=== PATIENT | female | born 1990 | race African-American/Black ===

== ENCOUNTER 2018-02-08 16:18 | Emergency (ER) | payer SELFPAY ==
[~2018-02-08] VITALS: Ht 167.6 cm; Wt 108.9 kg
[2018-02-08] MEDS ORDERED: cefTRIAXone SOD 1,000 MG VL IM ONE (17:45)
[2018-02-08] MEDS ORDERED: methylPREDNISolone SOD SUCC 125 MG/2 ML VL IM ONE (17:45)
[2018-02-08 17:58] VITALS: BP 119/77
== END 2018-02-08 18:26 | disposition home or self-care (01) ==
LOC: ER 16:23
DX: J03.90 Acute tonsillitis, unspecified (principal)
CPT/HCPCS: 96372; 99284; J0696; J2930

== ENCOUNTER 2018-02-28 00:11 | Emergency (ER) | payer OTHER ==
[~2018-02-28] VITALS: Ht 167.6 cm; Wt 106.6 kg
[2018-02-28 00:45] VITALS: BP 106/65
== END 2018-02-28 02:23 | disposition left against medical advice (07) ==
LOC: EDUNIT# 00:14 → ER 00:14
DX: R05 Cough (principal); Z53.21 Procedure and treatment not carried out due to patient leaving prior to being seen by health care provider